=== PATIENT | female | born 1960 | race Caucasian/White ===

== ENCOUNTER 2025-11-04 08:12 | Outpatient (CLI) | payer MEDICARE, BC, SELFPAY ==
[2025-11-04 15:31] LABS: TSH (W/Ref FT4) 1.77 uIU/mL (0.55-4.78)
[2025-11-04 15:34] LABS: Cholesterol 209 mg/dL (<200); HDL Cholesterol 69 mg/dL (>or=50)
== END 2025-11-04 08:13 | disposition home or self-care (01) ==
LOC: LBO 08:12
PROVIDERS: PCP Nurse Practitioner Family; Visit Provider Nurse Practitioner Family
DX: E78.5 Hyperlipidemia, unspecified (principal); E03.9 Hypothyroidism, unspecified
CPT/HCPCS: 36415; 80061; 84443